=== PATIENT | female | born 1965 | race American Indian/Alaskan Native ===

== ENCOUNTER 2017-03-29 12:30 | Emergency (ER) | payer MEDICARE ==
[2017-03-29 13:13] LABS: Basophils % (Auto) 0.6 % (0.0-1.8); Eosinophils % (Auto) 1.8 % (0.0-4.3); Hematocrit 41.6 % (30.3-42.9); Hemoglobin 14.3 gm/dl (10.1-14.3); Mean Corpuscular HGB Conc 35 % (30-34); Mean Corpuscular Hemoglobin 32 pg (28-32); Mean Corpuscular Volume 94 fl (79-97); Platelet Count 266 K/mm3 (140-440); Red Blood Count 4.43 M/mm3 (3.65-5.03); Red Cell Distribution Width 13.8 % (13.2-15.2); White Blood Count 8.1 K/mm3 (4.5-11.0)
[2017-03-29 13:30] LABS: Alanine Aminotransferase 20 units/L (7-56); Albumin 4.1 g/dL (3.9-5); Albumin/Globulin Ratio 1.1 %; Alkaline Phosphatase 89 units/L (35-129); Anion Gap 19 mmol/L; BUN/Creatinine Ratio 10; Blood Urea Nitrogen 5 mg/dL (7-17); Carbon Dioxide 23 mmol/L (22-30); Chloride 99.8 mmol/L (98-107); Glucose 129 mg/dL (65-100); Potassium 3.6 mmol/L (3.6-5.0); Sodium 138 mmol/L (137-145); Total Protein 7.7 g/dL (6.3-8.2)
[2017-03-29 18:10] VITALS: BP 157/94
[2017-03-29 18:55] LABS: Urine Drugs of Abuse Note Disclamer
[2017-03-29 19:03] LABS: Bacteria,Urine 1+ /HPF (Negative); Bilirubin,Urine NEG (Negative); Blood,Urine NEG (Negative); Ketones,Urine NEG (Negative); Leukocyte Esterase,Urine NEG (Negative); Mucus,Urine FEW /HPF; Nitrite,Urine NEG (Negative); Protein,Urine >500 mg/dL (Negative); Urobilinogen,Urine < 2.0 mg/dL (<2.0)
[2017-03-29] MEDS ORDERED: NORVASC PO ONE (19:31)
[2017-03-29] MEDS ORDERED: NORVASC ONE (19:36)
--- NOTE | 2017-03-29 19:39 | Emergency Department Report ---
ED Headache HPI - General Chief Complaint: Dizziness Stated Complaint: HEADACHE, DIZZINESS Time Seen by Provider: 03/29/17 19:22 Source: patient Exam Limitations: no limitations - History of Present Illness Initial Comments: 51 yo female who comes in today due to headache and dizziness. She states that she has been out of her blood pressure medications times two months. She states that currently her headache and dizziness is resolved. She states that she is requesting to leave as she has been waiting here in the ED for several hours. Headache described as diffuse, aching, and 8/10. Headache resolved currently. Timing/Duration: waxing and waning (two months ) Quality: achy, throbbing Head Injury Location: global Recent Head Trauma: no recent headache/trauma, other (hx of htn and medication noncompliance ) Modifying Factors: improves with: rest Associated Symptoms: denies symptoms Allergies/Adverse Reactions: Allergies No Known Allergies Allergy (Verified 03/29/17 12:37) Home Medications: Ambulatory Orders Cyclobenzaprine [Flexeril] 10 mg PO TID PRN #15 tablet 01/21/16 amLODIPine [Norvasc] 10 mg PO DAILY #30 tab 03/29/17 ED Review of Systems ROS: Stated complaint: HEADACHE, DIZZINESS Other details as noted in HPI Constitutional: denies: chills, fever Eyes: denies: eye pain, eye discharge, vision change ENT: denies: ear pain, throat pain Respiratory: denies: cough, shortness of breath, wheezing Cardiovascular: denies: chest pain, palpitations Endocrine: no symptoms reported Gastrointestinal: as per HPI Genitourinary: denies: urgency, dysuria, discharge Musculoskeletal: denies: back pain, joint swelling, arthralgia Skin: denies: rash, lesions Neurological: denies: headache, weakness, paresthesias Psychiatric: denies: anxiety, depression Hematological/Lymphatic: denies: easy bleeding, easy bruising ED Past Medical Hx - Past Medical History Previous Medical History?: Yes Hx Hypertension: Yes Additional medical history: High Cholesteral, Neuropathy, chronic back pain - Social History Smoking Status: Current Every Day Smoker Substance Use Type: None - Medications Home Medications: Home Medications Medication Instructions Recorded Confirmed Last Taken Type Cyclobenzaprine [Flexeril] 10 mg PO TID PRN #15 tablet 01/21/16 Unknown Rx amLODIPine [Norvasc] 10 mg PO DAILY #30 tab 03/29/17 Unknown Rx ED Physical Exam - General Limitations: No Limitations General appearance: alert, in no apparent distress - Head Head exam: Present: atraumatic, normocephalic - Eye Eye exam: Present: normal appearance - ENT ENT exam: Present: mucous membranes moist - Neck Neck exam: Present: normal inspection - Respiratory Respiratory exam: Present: normal lung sounds bilaterally. Absent: respiratory distress - Cardiovascular Cardiovascular Exam: Present: regular rate, normal rhythm. Absent: systolic murmur, diastolic murmur, rubs, gallop - Extremities Exam Extremities exam: Present: normal inspection - Back Exam Back exam: Present: normal inspection - Neurological Exam Neurological exam: Present: alert, oriented X3 - Psychiatric Psychiatric exam: Present: normal affect, normal mood - Skin Skin exam: Present: warm, dry, intact, normal color. Absent: rash ED Course Vital Signs 03/29/17 03/29/17 12:37 17:45 Temperature 98.6 F 98.5 F Pulse Rate 92 H 84 Respiratory 20 18 Rate Blood Pressure 141/91 157/94 O2 Sat by Pulse 100 99 Oximetry - Reevaluation(s) Reevaluation #1: 03/29/17 19:41 Patient agreed to have an EKG before discharge. She was instructed to get her amlodipine refilled on discharge. ED Medical Decision Making - Lab Data Result diagrams: 03/29/17 12:46 03/29/17 12:46 Critical care attestation.: If time is entered above; I have spent that time in minutes in the direct care of this critically ill patient, excluding procedure time. ED Disposition Clinical Impression: Hypertension Disposition: DC-01 TO HOME OR SELFCARE Is pt being admited?: No Does the pt Need Aspirin: No Condition: Stable Instructions: Hypertension (ED) Additional Instructions: Please follow up with your provider as scheduled. Return to the ED for worsening headache, sensitivity to light, nausea, vomiting, fever, or chills. Prescriptions: amLODIPine [Norvasc] 10 mg PO DAILY #30 tab Referrals: PRIMARY CARE, [Primary Care Provider] - 3-5 Days Time of Disposition: 19:44
== END 2017-03-29 19:59 | disposition home or self-care (01) ==
LOC: ED 12:30
DX: I10 Essential (primary) hypertension (principal); E78.00 Pure hypercholesterolemia, unspecified; G62.9 Polyneuropathy, unspecified; G89.29 Other chronic pain; F17.200 Nicotine dependence, unspecified, uncomplicated; Z79.899 Other long term (current) drug therapy
CPT/HCPCS: 36415; 80053; 80307; 81001; 82140; 83735; 84443; 85025; 93005; 93010; 99284; G0480; 80320

== ENCOUNTER 2019-01-27 19:48 | Emergency (ER) | payer MEDICARE ==
[2019-01-27 20:13] VITALS: BP 153/93
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
--- NOTE | 2019-01-27 21:54 | XRay Report ---
CLINICAL DATA: low back pain TECHNICAL DATA: AP and lateral views lumbar spine. FINDINGS: The bone mineralization is normal. Vertebral body heights are normal. Intervertebral disc spaces are well maintained. Pedicles and spinous processes are normal in alignment. SI joints and sacrum are nor mal. IMPRESSION: Normal examination lumbar spine. Signer Name: Jose García MD Signed: 01/27/2019 9:50 PM Workstation Name: [id number]
== END 2019-01-27 22:19 | disposition left against medical advice (07) ==
LOC: ED 19:48
DX: Z04.1 Encounter for examination and observation following transport accident (principal); Z53.21 Procedure and treatment not carried out due to patient leaving prior to being seen by health care provider
CPT/HCPCS: 72100

== ENCOUNTER 2019-06-21 18:07 | Emergency (ER) | payer MEDICARE ==
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
--- NOTE | 2019-06-21 19:36 | Cat Scan Report ---
CT head without contrast INDICATION : Dizziness and headache after head injury. TECHNIQUE: Axial imaging performed from the skull apex through the skull base without the use of con trast. All CT examinations performed at this facility utilize dose modulation, iterative reconstruct ion or weight-based dosing, when appropriate, to reduce radiation dose to as low as reasonably achiev able. COMPARISON: None FINDINGS: No acute intracranial hemorrhage or parenchymal abnormality. Ventricles are normal in si ze and appear symmetric. Soft tissues including the orbits appear normal. No acute osseous abnorm ality. Sinuses and mastoid air cells are clear. IMPRESSION: No acute abnormality. Signer Name: Sukhdev Paul MD Signed: 06/21/2019 7:31 PM Workstation Name: [id number]
[2019-06-21] MEDS ORDERED: ACETAMINOPHEN 325 MG TAB PO ONE (19:54)
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
[2019-06-21 20:47] VITALS: BP 145/80
== END 2019-06-21 20:47 | disposition home or self-care (01) ==
LOC: ED 18:07
DX: S09.90XA Unspecified injury of head, initial encounter (principal); I10 Essential (primary) hypertension; E78.00 Pure hypercholesterolemia, unspecified; G89.29 Other chronic pain; F17.200 Nicotine dependence, unspecified, uncomplicated; Z79.899 Other long term (current) drug therapy; W22.8XXA Striking against or struck by other objects, initial encounter; Y93.89 Activity, other specified; Y92.89 Other specified places as the place of occurrence of the external cause; Y99.8 Other external cause status
CPT/HCPCS: 70450

== ENCOUNTER 2019-07-03 03:58 | Emergency (ER) | payer MEDICARE ==
[2019-07-03 04:40] LABS: Bilirubin,Urine NEG (Negative); Blood,Urine NEG (Negative); Color,Urine Colorless (Yellow); Protein,Urine <15 mg/dL mg/dL (Negative); Urobilinogen,Urine < 2.0 mg/dL (<2.0); WBC,Urine < 1.0 /HPF (0.0-6.0)
[2019-07-03 04:59] LABS: Basophils # (Auto) 0.1 K/mm3 (0.0-0.1); Basophils % (Auto) 0.6 % (0.0-1.8); Eosinophils # (Auto) 0.3 K/mm3 (0.0-0.4); Eosinophils % (Auto) 2.1 % (0.0-4.3); Hemoglobin 14.4 gm/dl (10.1-14.3); Lymphocytes # (Auto) 3.1 K/mm3 (1.2-5.4); Lymphocytes % (Auto) 23.2 % (13.4-35.0); Mean Corpuscular HGB Conc 34 % (30-34); Mean Corpuscular Volume 92 fl (79-97); Monocytes # (Auto) 0.9 K/mm3 (0.0-0.8); Platelet Count 304 K/mm3 (140-440); Red Blood Count 4.65 M/mm3 (3.65-5.03); Red Cell Distribution Width 13.1 % (13.2-15.2)
[2019-07-03 05:22] LABS: Alanine Aminotransferase 16 units/L (7-56); Albumin 4.3 g/dL (3.9-5); BUN/Creatinine Ratio 10; Blood Urea Nitrogen 7 mg/dL (7-17); Calcium 9.2 mg/dL (8.4-10.2); Hemolysis Index 3
[2019-07-03] MEDS ORDERED: FAMOTIDINE 20 MG TAB PO ONE (08:12)
[2019-07-03] MEDS ORDERED: IBUPROFEN 400 MG TAB PO ONE (08:12)
[2019-07-03] MEDS ORDERED: ACETAMINOPHEN 325 MG TAB PO ONE (08:12)
[2019-07-03] MEDS ORDERED: SUCRALFATE 1 GM/10 ML ORAL LIQD PO ONE (08:12)
[2019-07-03] MEDS ORDERED: POTASSIUM CHLORIDE ER 20 MEQ TAB PO ONE (08:13)
--- NOTE | 2019-07-03 08:14 | Emergency Department Report ---
ED General Adult HPI - General Chief complaint: Abdominal Pain Stated complaint: RIGHT SIDE UPPER BODY PAIN Time Seen by Provider: 07/03/19 07:52 Source: patient, RN notes reviewed, old records reviewed Mode of arrival: Ambulatory Limitations: No Limitations - History of Present Illness Initial comments: This is a 53-year-old female. I have evaluated her in the past. During the entire history and physical examination, I am middle school director and escorted by nurse Klaudia Davies. The patient is a 53-year-old female with a history of obesity. She presents to the ER with a complaint of 1-1/2 to 2 weeks right upper quadrant right flank and right back pain. The pain is intermittent, throbbing, decreases with position, and increases with palpation and range of motion. She denies DVT and pulmonary embolism risk factors. There is no complaint of headache, neck pain, chest pain, exertional shortness of breath, vomiting, diaphoresis, irritative/obstructive urinary symptoms. She came in today because the pain is not getting better and "I know something is wrong with me." She is taking [id number] acetaminophen, 325 mg, once every few days. It does not really help her symptoms. She does not endorse any recent consumption of heavy and/or spicy foods or NSAID consumption. -: Gradual Location: abdomen Radiation: back Quality: other Consistency: other Improves with: other Worsens with: other Associated Symptoms: other - Related Data Home Medications Medication Instructions Recorded Confirmed Last Taken Acyclovir 07/03/19 07/02/19 11:00 AtorvaSTATin 07/03/19 07/02/19 11:00 Prempro 0.625-2.5 mg Tablet 07/03/19 07/02/19 11:00 Previous Rx's Medication Instructions Recorded Last Taken Type amLODIPine 10 mg PO DAILY #30 tab 03/29/17 07/02/19 11:00 Rx hydroCHLOROthiazide [HCTZ] 25 mg PO QDAY #30 tablet 03/29/17 07/02/19 11:00 Rx Acetaminophen [Non-Aspirin Extra 500 mg PO Q6HR PRN #30 tablet 07/03/19 Unknown Rx Strength] Famotidine [Pepcid] 20 mg PO BID #60 tablet 07/03/19 Unknown Rx Allergies Allergy/AdvReac Type Severity Reaction Status Date / Time No Known Allergies Allergy Verified 03/29/17 12:37 ED Review of Systems ROS: Stated complaint: RIGHT SIDE UPPER BODY PAIN Other details as noted in HPI Constitutional: denies: fever Eyes: denies: eye discharge ENT: denies: congestion Cardiovascular: denies: chest pain, syncope Gastrointestinal: abdominal pain Genitourinary: denies: dysuria Musculoskeletal: back pain Skin: as per HPI Neurological: as per HPI Psychiatric: as per HPI Hematological/Lymphatic: as per HPI ED Past Medical Hx - Past Medical History Previous Medical History?: Yes Hx Hypertension: Yes Additional medical history: High Cholesteral, Neuropathy, chronic back pain - Surgical History Past Surgical History?: Yes Additional Surgical History: HYSTERECTOMY, LEFT INGUINAL HERNIA - Social History Smoking Status: Current Every Day Smoker Substance Use Type: Alcohol - Medications Home Medications: Home Medications Medication Instructions Recorded Confirmed Last Taken Type amLODIPine 10 mg PO DAILY #30 tab 03/29/17 07/03/19 07/02/19 11:00 Rx hydroCHLOROthiazide [HCTZ] 25 mg PO QDAY #30 tablet 03/29/17 07/03/19 07/02/19 11:00 Rx Acetaminophen [Non-Aspirin Extra 500 mg PO Q6HR PRN #30 tablet 07/03/19 Unknown Rx Strength] Acyclovir 07/03/19 07/02/19 11:00 History AtorvaSTATin 07/03/19 07/02/19 11:00 History Famotidine [Pepcid] 20 mg PO BID #60 tablet 07/03/19 Unknown Rx Prempro 0.625-2.5 mg Tablet 07/03/19 07/02/19 11:00 History ED Physical Exam - General Limitations: No Limitations General appearance: alert, in no apparent distress, obese - Head Head exam: Present: atraumatic, normocephalic - Eye Eye exam: Present: normal appearance, EOMI. Absent: nystagmus - ENT ENT exam: Present: normal exam, normal orophraynx, mucous membranes moist, normal external ear exam - Neck Neck exam: Present: normal inspection, full ROM. Absent: tenderness, meningismus - Respiratory Respiratory exam: Present: normal lung sounds bilaterally. Absent: respiratory distress - Cardiovascular Cardiovascular Exam: Present: regular rate, normal rhythm, normal heart sounds. Absent: bradycardia, tachycardia, irregular rhythm, systolic murmur, diastolic murmur, rubs, gallop - GI/Abdominal GI/Abdominal exam: Present: soft, tenderness, normal bowel sounds, other (There is right upper quadrant tenderness to deep palpation. There is a negative Barrera sign.). Absent: distended, guarding, rebound, rigid, pulsatile mass - Extremities Exam Extremities exam: Present: normal inspection, full ROM, other (2+ pulses noted in the bilateral upper and lower extremities. There is no palpable cord. negative Homans sign. Muscular compartments are soft. The pelvis is stable.). Absent: pedal edema, calf tenderness - Back Exam Back exam: Present: normal inspection. Absent: tenderness, CVA tenderness (R), CVA tenderness (L), paraspinal tenderness, vertebral tenderness - Neurological Exam Neurological exam: Present: alert, oriented X3, normal gait, other (There is no facial droop. The tongue is midline. Extraocular movements are intact bilaterally. There is 5 out of 5 strength in bilateral upper and lower extremities. Sensation is intact to light touch bilateral upper and lower extremities. There is a normal gait.). Absent: motor sensory deficit - Psychiatric Psychiatric exam: Present: anxious - Skin Skin exam: Present: warm, dry, intact, normal color. Absent: rash ED Course Vital Signs 07/03/19 07/03/19 08:00 08:01 Temperature 98.2 F Pulse Rate 83 Respiratory 18 16 Rate O2 Sat by Pulse 99 Oximetry ED Medical Decision Making - Lab Data Result diagrams: 07/03/19 04:33 07/03/19 04:33 Vital Signs 07/03/19 07/03/19 08:00 08:01 Temperature 98.2 F Pulse Rate 83 Respiratory 18 16 Rate O2 Sat by Pulse 99 Oximetry Lab Results 07/03/19 07/03/19 07/03/19 Range/Units 04:20 04:33 04:33 WBC 13.3 H (4.5-11.0) K/mm3 RBC 4.65 (3.65-5.03) M/mm3 Hgb 14.4 H (10.1-14.3) gm/dl Hct 43.0 H (30.3-42.9) % MCV 92 (79-97) fl MCH 31 (28-32) pg MCHC 34 (30-34) % RDW 13.1 L (13.2-15.2) % Plt Count 304 (140-440) K/mm3 Lymph % (Auto) 23.2 (13.4-35.0) % Weber % (Auto) 7.0 (0.0-7.3) % Eos % (Auto) 2.1 (0.0-4.3) % Baso % (Auto) 0.6 (0.0-1.8) % Lymph # 3.1 (1.2-5.4) K/mm3 Weber # 0.9 H (0.0-0.8) K/mm3 Eos # 0.3 (0.0-0.4) K/mm3 Baso # 0.1 (0.0-0.1) K/mm3 Seg Neutrophils % 67.1 (40.0-70.0) % Seg Neutrophils # 8.9 H (1.8-7.7) K/mm3 Sodium 134 L (137-145) mmol/L Potassium 3.2 L (3.6-5.0) mmol/L Chloride 97.0 L (98-107) mmol/L Carbon Dioxide 21 L (22-30) mmol/L Anion Gap 19 mmol/L BUN 7 (7-17) mg/dL Creatinine 0.7 (0.7-1.2) mg/dL Estimated GFR > 60 ml/min BUN/Creatinine Ratio 10 % Glucose 124 H (65-100) mg/dL Calcium 9.2 (8.4-10.2) mg/dL Total Bilirubin 0.30 (0.1-1.2) mg/dL AST 24 (5-40) units/L ALT 16 (7-56) units/L Alkaline Phosphatase 56 (35-129) units/L Total Protein 7.6 (6.3-8.2) g/dL Albumin 4.3 (3.9-5) g/dL Albumin/Globulin Ratio 1.3 % Urine Color Colorless (Yellow) Urine Turbidity Clear (Clear) Urine pH 6.0 (5.0-7.0) Ur Specific Dingle 1.002 L (1.003-1.030) Urine Protein <15 mg/dl (Negative) mg/dL Urine Glucose (UA) Neg (Negative) mg/dL Urine Ketones Neg (Negative) mg/dL Urine Blood Neg (Negative) Urine Nitrite Neg (Negative) Urine Bilirubin Neg (Negative) Urine Urobilinogen < 2.0 (<2.0) mg/dL Ur Leukocyte Esterase Neg (Negative) Urine WBC (Auto) < 1.0 (0.0-6.0) /HPF Urine RBC (Auto) 1.0 (0.0-6.0) /HPF U Epithel Cells (Auto) < 1.0 (0-13.0) /HPF Lab Results 07/03/19 07/03/19 07/03/19 Range/Units 04:20 04:33 04:33 WBC 13.3 H (4.5-11.0) K/mm3 RBC 4.65 (3.65-5.03) M/mm3 Hgb 14.4 H (10.1-14.3) gm/dl Hct 43.0 H (30.3-42.9) % MCV 92 (79-97) fl MCH 31 (28-32) pg MCHC 34 (30-34) % RDW 13.1 L (13.2-15.2) % Plt Count 304 (140-440) K/mm3 Lymph % (Auto) 23.2 (13.4-35.0) % Weber % (Auto) 7.0 (0.0-7.3) % Eos % (Auto) 2.1 (0.0-4.3) % Baso % (Auto) 0.6 (0.0-1.8) % Lymph # 3.1 (1.2-5.4) K/mm3 Weber # 0.9 H (0.0-0.8) K/mm3 Eos # 0.3 (0.0-0.4) K/mm3 Baso # 0.1 (0.0-0.1) K/mm3 Seg Neutrophils % 67.1 (40.0-70.0) % Seg Neutrophils # 8.9 H (1.8-7.7) K/mm3 Sodium 134 L (137-145) mmol/L Potassium 3.2 L (3.6-5.0) mmol/L Chloride 97.0 L (98-107) mmol/L Carbon Dioxide 21 L (22-30) mmol/L Anion Gap 19 mmol/L BUN 7 (7-17) mg/dL Creatinine 0.7 (0.7-1.2) mg/dL Estimated GFR > 60 ml/min BUN/Creatinine Ratio 10 % Glucose 124 H (65-100) mg/dL Calcium 9.2 (8.4-10.2) mg/dL Total Bilirubin 0.30 (0.1-1.2) mg/dL AST 24 (5-40) units/L ALT 16 (7-56) units/L Alkaline Phosphatase 56 (35-129) units/L Total Protein 7.6 (6.3-8.2) g/dL Albumin 4.3 (3.9-5) g/dL Albumin/Globulin Ratio 1.3 % Urine Color Colorless (Yellow) Urine Turbidity Clear (Clear) Urine pH 6.0 (5.0-7.0) Ur Specific Dingle 1.002 L (1.003-1.030) Urine Protein <15 mg/dl (Negative) mg/dL Urine Glucose (UA) Neg (Negative) mg/dL Urine Ketones Neg (Negative) mg/dL Urine Blood Neg (Negative) Urine Nitrite Neg (Negative) Urine Bilirubin Neg (Negative) Urine Urobilinogen < 2.0 (<2.0) mg/dL Ur Leukocyte Esterase Neg (Negative) Urine WBC (Auto) < 1.0 (0.0-6.0) /HPF Urine RBC (Auto) 1.0 (0.0-6.0) /HPF U Epithel Cells (Auto) < 1.0 (0-13.0) /HPF - EKG Data -: EKG Interpreted by [facility] EKG shows normal: sinus rhythm Rate: normal - EKG Data When compared to previous EKG there are: previous EKG unavailable 07/03/19 10:17 There is no prior EKG available for comparison. This is a sinus rhythm, 72 bpm, left axis deviation, QTC 462 ms, left anterior fascicular block. The EKG is abnormal, there is no prior for comparison, it is not a STEMI - Radiology Data Radiology results: report reviewed, image reviewed Print Report Referring Physician: LILIA SOSA Patient Name: AZALIA GRANT Date of : 1965 Sex: Female Report Date: 2019-07-03 Report Status: Finalized Findings [facility] [address] [place] [address] XRay Report Signed Patient: AZALIA GRANT MR#: [id number] : 1965 Acct:[id number] Age/Sex: 53 / F ADM Date: 07/03/19 Loc: ED Attending Dr: Ordering Physician: LILIA SOSA MD Date of Service: 07/03/19 Procedure(s): XR chest routine 2V Accession Number(s): [id number] cc: LILIA SOSA MD Fluoro Time In Minutes: CHEST 2 VIEWS INDICATION: ruq r flank pain. COMPARISON: None FINDINGS: Support devices: None. Heart: Within normal limits. Lungs/pleura: No acute air space or interstitial disease. No pneumothorax. Additional fin dings: None. IMPRESSION: 1. No acute findings. Signer Name: Marquis Espinosa MD Signed: 07/03/2019 9:04 AM Workstation Name: [id number] Transcribed By: JW Dictated By: Marquis Espinosa MD Electronically Authenticated By: Marquis Espinosa MD Signed Date/Time: 07/03/19903 DD/ 2 TD/TT: Print Report Referring Physician: LILIA SOSA Patient Name: AZALIA GRANT Date of : 1965 Sex: Female Report Date: 2019-07-03 Report Status: Finalized Findings [facility] [address] [place] [address] Ultrasound Report Signed Patient: AZALIA GRANT MR#: [id number] : 1965 Acct:[id number] Age/Sex: 53 / F ADM Date: 07/03/19 Loc: ED Attending Dr: Ordering Physician: LILIA SOSA MD Date of Service: 07/03/19 Procedure(s): US abdomen limited Accession Number(s): [id number] cc: LILIA SOSA MD LIMITED RUQ ABDOMINAL ULTRASOUND INDICATION: ruq pain. COMPARISON: No relevant prior imaging study available. FINDINGS: Pancreas: Visualized portions show no significant abnormality. Abdominal Aorta: No significant abnormality. IVC: No significant abnormality. Liver: The liver measures 24 cm in length. No significant abnormality. Normal hepatopedal blood flow in the main portal vein. Gallbladder: 2 tiny adherent structures are seen in the gallbladder likely representing polyps each measuring roughly 1-2 mm. Bile ducts: No significant abnormality. Common bile duct measures 5 mm. Right kidney: Diffusely echogenic with simple cyst in the midpole measuring 1.6 cm. Free fluid: None. Additional Findings: None. IMPRESSION: 1. Hepatomegaly. 2. 2 probable tiny gallbladder polyps. 3. Diffusely echogenic right kidney, most commonly seen with medical renal disease. There is also a simple cyst. Signer Name: Marquis Espinosa MD Signed: 07/03/2019 9:03 AM Workstation Name: [email or web address] Transcribed By: JIMI Dictated By: Marquis Espinosa MD Electronically Authenticated By: Marquis Espinosa MD Signed Date/Time: 07/03/19902 DD/ 0859 - Medical Decision Making Differential diagnosis, including but not limited to: Pneumonia, renal colic, urinary tract infection, colitis, diverticulitis, appendicitis, cholecystitis, pulmonary embolism, intra-abdominal lesion Assessment and plan: 53-year-old female with 1-1/2 to 2 weeks of right flank and right upper quadrant abdominal pain. She is afebrile with reassuring vital signs, not tachycardic, tachypneic or hypoxic, she is low risk by Wells criteria, has a negative d-dimer, and has no pulmonary embolism or DVT risk factors. Her screening laboratory studies are reviewed and appreciated. Given that the patient is having more than 1 week of symptoms, troponin negative x1, as per the [employer] clinical policy, myocardial infarction may be excluded with 1 set of troponins/cardiac enzymes. Explained to the patient on her initial history and physical that it would take a few hours to complete her ER evaluation, and that wewould be happy to treat her pain, and complete her evaluation. The patient expressed dissatisfaction with weight times, and initially articulated that she would like to leave AGAINST MEDICAL ADVICE. We discussed the risks of leaving, including , disability, paralysis, permanent loss of quality of life without a full complete diagnostic ER work-up. Patient initially agreed to stay for further evaluation, and then subsequently refused. At the moment, she is alert and oriented x3, clinically sober, and free from distracting injury. Risks of leaving without a complete evaluation, including , disability, paralysis, loss of quality of life were discussed with the patient, who articulated understanding in her own words. The entire conversation is witnessed by nurse Klaudia Davies. Patient will be discharged AMA with supportive medications, and instructed to return to the emergency room right away if and when she changes her mind. Critical care attestation.: If time is entered above; I have spent that time in minutes in the direct care of this critically ill patient, excluding procedure time. ED Disposition Clinical Impression: Right flank pain Disposition: DC-07 LEFT AGAINST MED ADVICE Is pt being admited?: No Does the pt Need Aspirin: No Condition: Undetermined Additional Instructions: As we discussed, you have left the hospital/emergency room AGAINST MEDICAL ADVICE. By leaving, you risked , disability, paralysis, permanent loss of quality of life. The ER is open 24 hours a day, 7 days a week. It never closes. Please return to the emergency room right away if and when you change your mind. If you decide not to return to the emergency room, please follow-up with the listed physician referrals as soon as possible. Avoid consumption of Motrin, ibuprofen, Naprosyn, Aleve, alcohol. Take the prescribed medications as needed and directed. Please return to the emergency room right away if and when you change your mind. Otherwise, follow-up with dorina interiano soon as possible Referrals: DES ESPINOZA MD [Staff Physician] - 3-5 Days [facility] [Provider Group] - 3-5 Days
--- NOTE | 2019-07-03 09:08 | Ultrasound Report ---
LIMITED RUQ ABDOMINAL ULTRASOUND INDICATION: ruq pain. COMPARISON: No relevant prior imaging study available. FINDINGS: Pancreas: Visualized portions show no significant abnormality. Abdominal Aorta: No significant abnormality. IVC: No significant abnormality. Liver: The liver measures 24 cm in length. No significant abnormality. Normal hepatopedal blood flow in the main portal vein. Gallbladder: 2 tiny adherent structures are seen in the gallbladder likely representing polyps each m easuring roughly 1-2 mm. Bile ducts: No significant abnormality. Common bile duct measures 5 mm. Right kidney: Diffusely echogenic with simple cyst in the midpole measuring 1.6 cm. Free fluid: None. Additional Findings: None. IMPRESSION: 1. Hepatomegaly. 2. 2 probable tiny gallbladder polyps. 3. Diffusely echogenic right kidney, most commonly seen with medical renal disease. There is also a s imple cyst. Signer Name: Marquis Espinosa MD Signed: 07/03/2019 9:03 AM Workstation Name: [id number]
--- NOTE | 2019-07-03 09:09 | XRay Report ---
CHEST 2 VIEWS INDICATION: ruq r flank pain. COMPARISON: None FINDINGS: Support devices: None. Heart: Within normal limits. Lungs/pleura: No acute air space or interstitial disease. No pneumothorax. Additional findings: None. IMPRESSION: 1. No acute findings. Signer Name: Marquis Espinosa MD Signed: 07/03/2019 9:04 AM Workstation Name: [email or web address]
[2019-07-03 10:42] LABS: INR 0.91 (0.87-1.13)
[2019-07-03] MEDS ORDERED: SODIUM CHLORIDE 0.9% 500 ML 500 ML IV ONE (10:51)
[2019-07-03] MEDS ORDERED: MORPHINE 4 MG/1 ML INJ IV ONE (10:54)
[2019-07-03 11:28] VITALS: BP 122/62
== END 2019-07-03 10:59 | disposition left against medical advice (07) ==
LOC: ED 03:58
DX: R10.11 Right upper quadrant pain (principal); I10 Essential (primary) hypertension; F17.200 Nicotine dependence, unspecified, uncomplicated; Z97.10 Presence of artificial limb (complete) (partial), unspecified; Z98.890 Other specified postprocedural states; Z79.899 Other long term (current) drug therapy
CPT/HCPCS: 36415; 71046; 76705; 80053; 81001; 82550; 83690; 83735; 85025; 85379; 85610; 85730; 93005; 93010